=== PATIENT | female | born 1985 | race Caucasian/White ===

== ENCOUNTER 2017-01-19 10:11 | Inpatient (IN) ==
[2017-01-26] MEDS ORDERED: CARBOPROST 250 MCG/ML INJECTION IM PRN (06:21)
[2017-01-26] MEDS ORDERED: ACETAMINOPHEN 500 MG TABLET PO PRN ×2 (06:21→16:38)
[2017-01-26] MEDS ORDERED: CALCIUM CARBONATE Chewable 500mg TABLET PO PRN ×2 (06:21→16:38)
[2017-01-26] MEDS ORDERED: LR 1,000 ML IV PRN (06:21)
[2017-01-26] MEDS ORDERED: MAG-AL + SIM ORAL LIQUID 30ml PO PRN ×2 (06:21→16:38)
[2017-01-26] MEDS ORDERED: METHYLERGONOVINE 0.2 MG/ML INJECTION IM PRN (06:21)
[2017-01-26] MEDS ORDERED: OXYTOCIN DRIP 30 UNIT/500 ML ML IV PRN (06:21)
[2017-01-26] MEDS ORDERED: LIDOCAINE 1% (10mg/ml) 2mL INJ PF SDV ID PRN (06:21)
[2017-01-26] MEDS ORDERED: D5LR 1,000 ML IV PRN (06:21)
[2017-01-26] MEDS: D5LR 1,000 ML IV SCH (07:37)
--- NOTE | 2017-01-26 13:11 | Anesthesia Preoperative Report ---
Anesthesia Epidural/Spinal Rec - Date and Time Date: 01/26/17 Procedure: Labor Epidural Plan: Epidural - Vital Signs Vital Signs: Temperature 97.9 F 01/26/17 07:15 Pulse Rate 67 01/26/17 07:15 Respiratory Rate 16 01/26/17 07:15 Blood Pressure 109/72 01/26/17 07:15 Pulse Oximetry 97 01/26/17 07:15 /Para: P:0 - Medictaions & Allergies Inpatient Medications: Current Medications Acetaminophen (Tylenol) 500 - 1,000 mg PO Q4H PRN PRN Reason: Pain Al Hydroxide/Mg Hydroxide (Maalox Plus) 30 ml PO Q3H PRN PRN Reason: Indigestion Calcium Carbonate (Tums) 500 - 1,000 mg PO Q2H PRN PRN Reason: Indigestion Carboprost Tromethamine (Hemabate) 250 mcg IM O PRN PRN Reason: .Downtime Dextrose/Lactated Ringer's (Dextrose 5%-Lactated Ringers) 1,000 mls @ 125 mls/ hr IV .Q8H PRN PRN Reason: Labor Dextrose/Lactated Ringer's (Dextrose 5%-Lactated Ringers) 1,000 mls @ 125 mls/ hr IV .Q8H SEBLE Last Admin: 01/26/17 07:37 Dose: 125 mls/hr Oxytocin (Pitocin Drip) 30 unit in 500 mls @ 2 mls/hr IV .Q24H PRN; Protocol PRN Reason: Induction/Augmentation Last Admin: 01/26/17 07:00 Dose: 2 mls/hr Lactated Ringer's (Lactated Ringers) 1,000 mls @ 999 mls/hr IV .Q1H1M PRN Last Admin: 01/26/17 07:00 Dose: 999 mls/hr Lidocaine HCl (Xylocaine-Mpf 1% Vial) 0.2 mg ID O PRN PRN Reason: IV Start Methylergonovine Maleate (Methergine) 0.2 mg IM O PRN Misoprostol (Cytotec) 800 mcg GA ONCE PRN Allergies/Adverse Reactions: Allergies Allergy/AdvReac Type Severity Reaction Status Date / Time No Known Allergies Allergy Verified 01/26/17 07:21 - Home Medications Home Medications: Home Medications Medication Instructions Recorded Confirmed Type Vitamins 1 tab DAILY 01/02/17 01/26/17 History - Medical History Respiratory: DENIES: Asthma, Sleep Apnea Cardiovascular: DENIES: Angina, Arrhythmia, Hypertension Gastrointestional: Reports: Gastroesophageal Reflux Disease (during only) Renal/Endocrine: DENIES: Diabetes Mellitus Type 2 Other History: DENIES: Anesthesia Reactions - Surgical History Anesthesia Reactions: None Hx Family Anesthesia Reaction: No History of Motion Sickness: No - Social History Second Hand Exposure: No Substance Use Type: does not use Hx Chewing Tobacco Use: No - Pertinent Findings Lab Data: CBC and BMP 01/26/17 06:33 - Physical Exam Respiratory Exam: lungs clear Cardiovascular Exam: regular rate and rhythm - Airway Assessment Mallampati Score: II TMD: 3 Fingerbreadths Neck Extension: good Overall Assessment: no airway concerns - ASA ASA Score: 2 - Discussion Discussion: Discussed risks/options/alternatives of anesthesia and questions answered. Patient consents. Nursing pain assessment noted. Anesthesia Discussion: spouse Attestation Statement: Prior to the delivery of any anesthetic medication, I examined the patient, developed the plan, obtained the patient's consent and discussed the risk and benefits of the procedure with the patient/guardian.
--- NOTE | 2017-01-26 16:19 | Labor and Delivery Note ---
DATE 01/26/2017 Mrs. Estrada progressed well in first stage of labor. She began to push with excellent effort at the complete and +2 presentation. She pushed for about an hour, delivering the head in the OA position. Baby was bulb suctioned on the perineum. There was a tight nuchal cord x1 that was doubly clamped and cut. With two further pushes, the baby was delivered in total. Baby was then further bulb suctioned, placed on mother's abdomen. This was a liveborn male. Apgars were 8/8/9 and he weighed 8 pounds 4.2 ounces. After a few moments, the placenta delivered spontaneously intact. It had a normal configuration and normal-appearing three-vessel cord. There was a spontaneous second-degree midline laceration that was repaired in the usual fashion with 2-0 Vicryl. Total blood loss was approximately 400 mL At the time of this dictation, mother and baby are doing well. [facility]ITAL[facility]an
[2017-01-26] MEDS ORDERED: HYDROCORTISONE 2.5% CREAM 30gm RECTALLY PRN (16:38)
[2017-01-26] MEDS ORDERED: DiphenhydrAMINE 25 MG CAPSULE PO PRN (16:38)
[2017-01-26] MEDS ORDERED: HYDROCODONE/APAP 5mg/325mg TABLET PO PRN (16:38)
[2017-01-26] MEDS ORDERED: SALINE FLUSH 10ml SYRINGE IV PRN (16:38)
[2017-01-26] MEDS ORDERED: OXYTOCIN DRIP 30 UNIT/500 ML ML IV SCH (16:38)
[2017-01-26 17:21] VITALS: BMI 31.6
[2017-01-26] MEDS: IBUPROFEN 800 MG TABLET PO SCH (17:26)
--- NOTE | 2017-01-26 20:25 | Anesthesia Postoperative Note ---
- Date and Time Date: 01/26/17 Time: 20:25 - Status Patient Participated in Evaluation: Patient Participated in Person Vital Signs: Temperature 98.1 F 01/26/17 19:35 Pulse Rate 76 01/26/17 19:35 Respiratory Rate 16 01/26/17 19:35 Blood Pressure 140/63 H 01/26/17 19:35 Pulse Oximetry 97 01/26/17 07:15 Cardiovascular Function: Regular Pulse Mental Status: Alert and Oriented Pain Intensity: 0 Hydration: Taking PO Fluids Complications During Recover: None Apparent Post Anesthesia Care Notes: full motor and sensation has returned - Follow-Up Instructions Instructions: Per Surgeon
[2017-01-26] MEDS ORDERED: ROPIVACAINE 1% 10MG/ML INJ 200 MG, SUFentanil 50 MCG in NS 80 ML EPI PRN (22:00)
[2017-01-27] MEDS: IBUPROFEN 800 MG TABLET PO SCH ×4 (02:25→14:03)
[2017-01-27] MEDS: D5LR 1,000 ML IV SCH (05:06)
--- NOTE | 2017-01-27 08:34 | OB/GYN Progress Note ---
OB-Progress Note Free Text - Date Date: 01/27/17 - Progress Note Progress Note: vss af doing well no c/o cont routine care path
[2017-01-27] MEDS ORDERED: DOCUSATE CALCIUM 240 MG CAPSULE PO SCH (09:00)
[2017-01-27] MEDS ORDERED: PRENATAL VITAMIN TABLET PO SCH (09:00)
[2017-01-27 11:55] VITALS: O2SAT 98
[2017-01-27 16:39] VITALS: BP 115/67; PULSE 86; RESP 16; TEMP 97.5
--- NOTE | 2017-01-27 17:10 | Progress Note ---
OB PP Progress Note Free Text - Date Date: 01/27/17 - Progress Note Progress Note: doing well desires dc instructions reviewed q&a f/u 6 wks
--- NOTE | 2017-01-27 17:13 | Discharge Instructions ---
Discharge Plan - Med Rec/Dispo Referrals/Follow Up: Marsha Sarabia MD [Physician] - [place] Instructions: [facility] Vaginal Delivery Additional Instructions: Schedule an appointment to follow up with Dr Sarabia in 6 weeks Prescriptions: New Ibuprofen [Motrin] 800 mg PO Q8H tablet Continue Vitamins 1 tab DAILY - Disposition 01 Discharged Home, Self-Care
== END 2017-01-27 18:55 | disposition home or self-care (01) | DRG 775 ==
LOC: MC 01-26 06:01
PROVIDERS: ADMIT Obstetrics & Gynecology; ATTEND Obstetrics & Gynecology